=== PATIENT | male | born 1930 | race Caucasian/White ===

== ENCOUNTER 2016-09-19 13:13 | Emergency (ER) | payer MEDICARE, BC ==
[2016-09-19] MEDS ORDERED: METOCLOPRAMIDE HCL 10 MG/2 ML VIAL IVP ONE (13:47)
[2016-09-19] MEDS ORDERED: DIPHENHYDRAMINE HCL IV 50 MG/ML VIAL IVP ONE (13:47)
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
[2016-09-19] MEDS ORDERED: 0.9 % SODIUM CHLORIDE 1000ML 500 ML IV SCH (14:00)
== END 2016-09-19 15:19 | disposition home or self-care (01) ==
LOC: ER 13:13
DX: R51 Headache (principal); R11.0 Nausea; H53.8 Other visual disturbances
CPT/HCPCS: 70450; 96374; 96375; 99284; J1200; J2765; J7030

== ENCOUNTER 2018-01-09 16:27 | Emergency (ER) | payer MEDICARE, BC ==
[2018-01-09] MEDS ORDERED: ONDANSETRON HCL IV 4 MG/2 ML VIAL IV ONE (16:52)
[2018-01-09] MEDS ORDERED: 0.9 % SODIUM CHLORIDE 1,000 ML BAG IV ONE (16:52)
[2018-01-09 17:21] LABS: BASO % 0.2 % (0-6); EOS % 0.1 % (0-6); GRAN % 76.4 % (47-80); HEMATOCRIT 44.4 % (42.0-52.0); HEMOGLOBIN 14.7 gm/dl (14.0-18.0); LYMPH % 18.5 % (16-45); MEAN CELL VOLUME 96.7 fl (81-97); MEAN CORPUSCULAR HGB CONC 33.1 g/dl (32-36); MEAN PLATELET VOLUME 10.5 fl (7.4-10.4); MONO % 4.8 % (0-9); PLATELET COUNT 238 K/uL (130-400); RED BLOOD COUNT 4.59 M/uL (4.40-5.70); RED CELL DISTRIBUTION WIDTH 12.9 % (11.5-14.5); WHITE BLOOD COUNT W/O DIFF 8.4 K/uL (4.2-12.2)
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
[2018-01-09 17:34] LABS: BLOOD UREA NITROGEN 19 mg/dL (8-23); EST GLOMERULAR FILTRATION RATE > 60 mL/min
[2018-01-09 17:35] LABS: TOTAL PROTEIN 7.2 g/dL (6.6-8.7)
[2018-01-09 17:37] LABS: GLUCOSE,RANDOM 192 mg/dL (74-109)
[2018-01-09 17:39] LABS: ALBUMIN 4.5 g/dL (4.0-5.0); ALT/SGPT 6 U/L (<41); AST/SGOT 8 U/L (10.0-50.0)
[2018-01-09 17:40] LABS: ALB/GLOB RATIO 1.7 (1.1-1.8); ALKALINE PHOSPHATASE 92 U/L (40-129); LIPASE 34 U/L (13-60)
[2018-01-09 17:58] LABS: URINE APPEARANCE CLEAR; URINE BILIRUBIN NEGATIVE (NEGATIVE); URINE BLOOD NEGATIVE (NEGATIVE); URINE COLOR YELLOW; URINE KETONE 15 mg/dL (NEGATIVE); URINE LEUKOCYTE ESTERASE NEGATIVE (NEGATIVE); URINE NITRITE NEGATIVE (NEGATIVE); URINE PROTEIN TRACE (NEGATIVE); URINE UROBILINOGEN 0.2 E.U./dL (0.20 - 1.00)
[2018-01-09] MEDS ORDERED: ONDANSETRON 4 MG ODT TABLET SL ONE (18:01)
== END 2018-01-09 18:47 | disposition home or self-care (01) ==
LOC: ER 16:27
DX: R11.2 Nausea with vomiting, unspecified (principal); R63.4 Abnormal weight loss; I10 Essential (primary) hypertension
CPT/HCPCS: 99284 ×2; 96374; 96361; 83690; 85025; 80053; 81003; J2405; J7030

== ENCOUNTER 2018-09-23 08:18 | Inpatient (IN) | payer MEDICARE, BC ==
[2018-09-23 09:07] LABS: ABSOLUTE NEUTROPHIL COUNT 15.23; BASO % 0.1 % (0-6); EOS % 0.5 % (0-6); HEMOGLOBIN 12.7 gm/dl (14.0-18.0); LYMPH % 4.9 % (16-45); MEAN CELL VOLUME 94.8 fl (81-97); MEAN CORPUSCULAR HGB CONC 31.8 g/dl (32-36); MEAN PLATELET VOLUME 9.7 fl (7.4-10.4); MONO % 5.2 % (0-9); PLATELET COUNT 619 K/uL (130-400); RED BLOOD COUNT 4.22 M/uL (4.40-5.70); RED CELL DISTRIBUTION WIDTH 13.1 % (11.5-14.5); WHITE BLOOD COUNT W/O DIFF 17.1 K/uL (4.2-12.2)
[2018-09-23 09:15] LABS: BLOOD UREA NITROGEN 16 mg/dL (8-23)
[2018-09-23 09:16] LABS: CREATININE 0.8 mg/dL (0.7-1.2); EST GLOMERULAR FILTRATION RATE > 60 mL/min; TOTAL PROTEIN 7.2 g/dL (6.6-8.7)
[2018-09-23 09:18] LABS: GLUCOSE,RANDOM 256 mg/dL (74-109)
[2018-09-23 09:21] LABS: ALB/GLOB RATIO 0.8 (1.1-1.8); ALBUMIN 3.2 g/dL (4.0-5.0); ALKALINE PHOSPHATASE 117 U/L (40-129); ALT/SGPT 21 U/L (<41); AST/SGOT 12 U/L (10.0-50.0)
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
[2018-09-23] MEDS ORDERED: CEFTRIAXONE 1GM/50ML BAG 1 GM/50 ML BAG IVPB ONE (09:43)
[2018-09-23] MEDS ORDERED: AZITHROMYCIN 500 MG in 0.9 % SODIUM CHLORIDE 250ML 250 ML IVPB ONE (09:43)
[2018-09-23 10:04] LABS: C-REACTIVE PROTEIN 23.63 mg/dL (<0.5)
[2018-09-23] MEDS ORDERED: ACETAMINOPHEN 325 MG TAB PO PRN (13:13)
[2018-09-23] MEDS ORDERED: NAPROXEN 250 MG TABLET PO PRN (15:45)
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
[2018-09-23] MEDS ORDERED: 0.9 % SODIUM CHLORIDE 1000ML 1,000 ML IV SCH (18:00)
[2018-09-23] MEDS: CEFTRIAXONE 1GM/50ML BAG 1 GM/50 ML BAG IVPB SCH (21:56)
[2018-09-24 06:51] LABS: ABSOLUTE NEUTROPHIL COUNT 17.48; HEMATOCRIT 36.1 % (42.0-52.0); HEMOGLOBIN 11.4 gm/dl (14.0-18.0); MEAN CORPUSCULAR HGB CONC 31.6 g/dl (32-36); MEAN PLATELET VOLUME 9.5 fl (7.4-10.4); PLATELET COUNT 568 K/uL (130-400); RED CELL DISTRIBUTION WIDTH 13.1 % (11.5-14.5); WHITE BLOOD COUNT W/O DIFF 19.1 K/uL (4.2-12.2)
[2018-09-24 07:12] LABS: PLATELET ESTIMATE INCREASED (NORMAL)
[2018-09-24 07:24] LABS: BLOOD UREA NITROGEN 16 mg/dL (8-23); CREATININE 0.8 mg/dL (0.7-1.2); EST GLOMERULAR FILTRATION RATE > 60 mL/min; GLUCOSE,RANDOM 209 mg/dL (74-109)
--- NOTE | 2018-09-24 07:40 | RADIOLOGY REPORT ---
EXAM: CHEST, TWO VIEWS HISTORY: CHEST PAIN, WEAKNESS. TECHNIQUE: Two views of the chest were obtained. Comparison: Abdomen radiograph 08/11/18. FINDINGS: The cardiac silhouette is within normal size limits. There is a new dense consolidation in the right middle lobe. There is also a small right pleural effusion which is new from prior. No focal left lung findings. No pneumothorax. The lungs are hyperinflated. Diffuse thoracic spondylosis. IMPRESSION: 1. NEW RIGHT MIDDLE LOBE CONSOLIDATION SUSPICIOUS FOR PNEUMONIA. 2. NEW SMALL RIGHT PLEURAL EFFUSION. 3. PULMONARY HYPERINFLATION SUGGESTING COPD. JOB NUMBER: [id number] [facility]
[2018-09-24] MEDS: CEFTRIAXONE 1GM/50ML BAG 1 GM/50 ML BAG IVPB SCH ×2 (09:41→09:53)
[2018-09-24] MEDS ORDERED: ENOXAPARIN 40 MG/0.4 ML SYR SQ SCH (10:00)
[2018-09-24] MEDS ORDERED: CEFEPIME HCL 2 GM in 0.9 % SODIUM CHLORIDE 100ML 100 ML IVPB ONE (10:15)
[2018-09-24] MEDS ORDERED: LEVOFLOXACIN/D5W 750 MG/150 ML BAG IVPB ONE (10:45)
[2018-09-24] MEDS ORDERED: AZITHROMYCIN 500 MG in 0.9 % SODIUM CHLORIDE 250ML 250 ML IVPB SCH (11:00)
--- NOTE | 2018-09-24 11:17 | Discharge Summary ---
Providers Discharge Summary Date: 09/24/18 Date of admission: 09/23/18 12:33 Expected Date of Discharge: 09/24/18 Attending physician: EUGENIO WIGGINS Primary care physician: EUGENIO WIGGINS Physical Exam - Vital Signs Vital Signs: Vital Signs - Last 24 Hrs Temp Pulse Resp BP BP BP Pulse Ox 09/24/18 09:00 20 09/24/18 08:00 97.8 F 79 16 124/62 97 09/23/18 21:18 99 F 113/54 09/23/18 20:00 97.9 F 77 22 114/86 96 09/23/18 16:00 99.0 F 81 16 113/54 95 09/23/18 15:05 16 09/23/18 13:00 98.7 F 81 18 124/60 97 09/23/18 12:48 97.7 F 80 16 139/66 97 - General General Appearance: Alert, Oriented x3, Cooperative, No acute distress Limitations: No limitations - Head Head exam: Atraumatic, Normocephalic, Normal inspection - Eye Eye exam: Normal appearance, PERRL - ENT ENT exam: Mucous membranes moist Throat exam: Normal inspection. negative: Tonsillar erythema, Tonsillar exudate - Neck Neck exam: Normal inspection, Full ROM. negative: Tenderness - Respiratory Respiratory exam: Normal lung sounds bilaterally. negative: Respiratory distress - Cardiovascular Cardiovascular Exam: Regular rate, Normal rhythm, Normal heart sounds Peripheral Pulses: 2+: Radial (R), Radial (L), Dorsalis Pedis (R), Dorsalis Pedis (L) - GI/Abdominal GI/Abdominal exam: Soft, Normal bowel sounds. negative: Tenderness - Rectal Rectal exam: Deferred - exam: Deferred - Extremities Extremities exam: Normal inspection, Normal capillary refill. negative: Calf tenderness, Pedal edema, Tenderness - Neurological Neurological exam: Alert, Oriented X3. negative: Altered, Motor sensory deficit - Psychiatric Psychiatric exam: Normal affect, Normal mood. negative: Anxious - Skin Skin exam: Normal color. negative: Rash Hospitalization - Hospitalization Admission Diagnosis: 1. Acute Pneumonia - Problem List/Discharge Diagnosis (1) CAP (community acquired pneumonia) Current Visit: Yes Status: Acute Base Code: J18.9 - PNEUMONIA, UNSPECIFIED ORGANISM Comment: 09/24/18: -CXR: RML PNA with right-sided pleural effusion -WBC 19, CRP 23.6, procalcitonin 0.4 -Rocephin 1gm IVPB q12h and Zithromax 500mg IVPB q24h dc due to increase in procalcitonin -Patient reports signficant improvement in symptoms, return of appetite, afebrile, no shortness of breath and improvement in cough. Requesting to dc home. -Will transition to Levaquin 750mg PO daily, received 1 dose of Cefepime IVPB -Patient to have CBC and procalcitonin rechecked tomorrow and adjust antibiotic therapy as needed (2) DVT prophylaxis Current Visit: Yes Status: Acute Base Code: Z29.9 - ENCOUNTER FOR PROPHYLACTIC MEASURES, UNSPECIFIED Comment: 09/24/18: -High risk due to age, hospitalization, and illness -Lovenox 40mg SQ daily -Encourage ambulation within the room (3) DNR (do not resuscitate) Current Visit: Yes Status: Acute Base Code: Z66 - DO NOT RESUSCITATE Comment: 09/24/18: -DNR this admission - Hospitalization Course Disposition: Home, Self-Care Hospital Course: 88 year old male patient presented to ED for weakness, cough, fevers, and shortness of breath with exertion since Thursday. Patient reports decreased appetitie, but denies nausea or vomiting. Patient reports right-sided chest pain since symptoms started. Reports productive cough of thick, purulent sputum. Patient denies any current medications or significant medical history. PCP: Dr. Wiggins ED Course: Temp 97.5, HR 103, RR 20, BP 115/90, Pulse ox 98% WBC 17, CRP 24.6, procal 0.206 Trop negative EKG: no acute changes, NSR CXR: RML PNA with small right pleural effusion Rocephin and Zithromax started 09/23/18: Patient A&O x 4, resting comfortably in bed with daughter at bedside. No respiratory distress. VS stable, patient on room air, tolerating PO diet. 09/24/09: Patient A&O x 4, resting comfortably in bed. Patient reports improvement in all symptoms, improved appetite, decreased coughing. Denies shortness of breath, VS stable, no need for supplemental oxygen. WBC slightly increased and procalcitonin increased from 0.2 to 0.4. Patient requesting to go home. at bedside, agreeable to get labs rechecked in the morning and go to ER if symptoms worsen. Will dc rocephin and zithromas and treat with 1 dose of Cefepime and Levaquin 750mg x 7 days. Procedures: Imaging and X-Rays 09/23/18 08:55 CHEST 2 VIEWS [RAD] Stat Cardiology Procedures 09/23/18 08:38 EKG NOW 09/23/18 08:54 Ticket [employer] NOW Abnormal Labs: Abnormal Lab Results 09/23/18 09/23/18 09/23/18 Range/Units 08:40 08:40 08:40 WBC 17.1 H (4.2-12.2) K/uL RBC 4.22 L (4.40-5.70) M/uL Hgb 12.7 L (14.0-18.0) gm/dl Hct 40.0 L (42.0-52.0) % MCHC 31.8 L (32-36) g/dl Plt Count 619 H (130-400) K/uL Neutrophils % 91.0 H (47-80) % Lymphocytes % 4.9 L (16-45) % Lymphocytes 6.0 L (16-45) % Sodium 133 L (136-145) mmol/L Potassium 4.8 H (3.4-4.5) mmol/L Chloride 93 L (98-107) mmol/L Random Glucose 256 H (74-109) mg/dL C-Reactive Protein 23.63 H (<0.5) mg/dL Albumin 3.2 L (4.0-5.0) g/dL Albumin/Globulin Ratio 0.8 L (1.1-1.8) 09/24/18 09/24/18 Range/Units 06:36 06:36 WBC 19.1 H (4.2-12.2) K/uL RBC 3.80 L (4.40-5.70) M/uL Hgb 11.4 L (14.0-18.0) gm/dl Hct 36.1 L (42.0-52.0) % MCHC 31.6 L (32-36) g/dl Plt Count 568 H (130-400) K/uL Neutrophils % 88.0 H (47-80) % Lymphocytes % (16-45) % Lymphocytes 8.0 L (16-45) % Sodium 133 L (136-145) mmol/L Potassium (3.4-4.5) mmol/L Chloride 96 L (98-107) mmol/L Random Glucose 209 H (74-109) mg/dL C-Reactive Protein (<0.5) mg/dL Albumin (4.0-5.0) g/dL Albumin/Globulin Ratio (1.1-1.8) Condition at Discharge: (2) Stable Discharge Medications - Discharge Medications Prescriptions: Levofloxacin [Levaquin] 750 mg PO DAILY #6 tab Home Medications: Ambulatory Orders Levofloxacin [Levaquin] 750 mg PO DAILY #6 tab 09/24/18 [Last Taken Unknown] Discharge Plan - Discharge Instructions Activity at Discharge: Increase Activity as Tolerated Diet at Discharge: Advance to Usual Diet Instructions: Community Acquired Pneumonia (DC) Additional Instructions: -Start taking the Levaquin tomorrow (09/25/18) -Get your labs done at the hospital 09/25/18, you will receive a call later in the day with results -Go to ER if symptoms begin to worsen at any time -Follow-up with Dr. Wiggins in 1-2 weeks Diet and activity as tolerated Quality Measures - Quality Measures Quality Measures: Advance Directives, Documentation of Current Medications in Medical Record, Elder Maltreatment Screen and Follow-Up Plan, Screening for High Blood Pressure and F/U Documented - Current Medications Quality Measure: Measure #130: Documentation of Current Medications Documentation of Current Medications: <Current Medications Documented/Reviewed> [I4254] - Blood Pressure Screening Quality Measure: Screening for High Blood Pressure and Follow-Up Documented Does Patient Have Any of the Following: No Blood Pressure Classification: Normal BP Reading Systolic Measurement: 113 Diastolic Measurement: 54 Screening for High Blood Pressure: < Normal BP, F/U Not Required > [T2593] - Advance Directives Quality Measure: Measure #47: Care Plan Advance Directives Established: Yes Advance Directives Information Provided To Patient: No Advance Directives on File: No Living Will: No Power of Vp Security: No Advance Care Planning: <Care Plan/Decision Maker Documented; Discussed & Documented> [4887F] - Elder Abuse Suspicion Index Screening: Elder Abuse Suspicion Index Screening Rely on people for bathing, dressing, shopping, banking, etc: No Prevented from getting food, clothes, medication, etc: No Made to feel shamed or threatened by someone: No Forced to sign papers or use money against will: No Feel afraid, touched in ways not wanted or hurt physically: No Poor eye contact, withdrawn, malnourished, cuts or bruises: No Screening Result: Negative result EASI Reference Information: Crystal SANCHEZ, Sherry Russo, Basilio Carroll, Zohra Hassan.Development and validation of a tool to assist physicians identification of elder abuse: The Elder Abuse Suspicion Index (EASI ). Journal of Elder Abuse and Neglect, 2008; 20 (3): 276-300. - Elder Maltreatment Screen Quality Measures: Elder Maltreatment Screen and Follow-Up Plan Elder Maltreatment Screen: <Negative, No Follow-Up Plan Required> [G4476]
== END 2018-09-24 11:20 | disposition home or self-care (01) | DRG 195 ==
LOC: ER 08:18 → MEDSURG 12:33
PROVIDERS: ADMIT Internal Medicine; ATTEND Internal Medicine
DX: J18.9 Pneumonia, unspecified organism (principal); I10 Essential (primary) hypertension; E78.00 Pure hypercholesterolemia, unspecified; D75.1 Secondary polycythemia; R51 Headache; M54.9 Dorsalgia, unspecified; Z66 Do not resuscitate
CPT/HCPCS: 86140; 82553; 80053; 84145; 84484; 85027; 71046; 93005; 93010; J0696; 80048; 96365; 96366; 99223; 99239; 99285; J0456; J1650; J1956; J7050

== ENCOUNTER 2018-10-08 15:16 | Emergency (ER) | payer MEDICARE, BC ==
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
== END 2018-10-08 17:02 | disposition home or self-care (01) ==
LOC: ER 15:16
DX: K59.00 Constipation, unspecified (principal); R10.9 Unspecified abdominal pain; I10 Essential (primary) hypertension
CPT/HCPCS: 99282; 99283

== ENCOUNTER 2018-10-22 09:10 | Inpatient (IN) | payer MEDICARE, BC ==
[2018-10-22 09:57] LABS: ABSOLUTE NEUTROPHIL COUNT 5.73; BASO % 0.4 % (0-6); EOS % 2.7 % (0-6); GRAN % 70.1 % (47-80); HEMATOCRIT 39.5 % (42.0-52.0); HEMOGLOBIN 12.4 gm/dl (14.0-18.0); LYMPH % 20.6 % (16-45); MEAN CORPUSCULAR HEMOGLOBIN 29.8 pg (27-33); MEAN CORPUSCULAR HGB CONC 31.4 g/dl (32-36); MEAN PLATELET VOLUME 9.8 fl (7.4-10.4); MONO % 6.2 % (0-9); PLATELET COUNT 316 K/uL (130-400); RED BLOOD COUNT 4.16 M/uL (4.40-5.70); RED CELL DISTRIBUTION WIDTH 15.7 % (11.5-14.5); WHITE BLOOD COUNT W/O DIFF 8.2 K/uL (4.2-12.2)
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
[2018-10-22 10:06] LABS: BLOOD UREA NITROGEN 23 mg/dL (8-23); EST GLOMERULAR FILTRATION RATE > 60 mL/min
[2018-10-22 10:09] LABS: GLUCOSE,RANDOM 212 mg/dL (74-109)
[2018-10-22] MEDS ORDERED: ACETAMINOPHEN 325 MG TAB PO ONE (10:48)
[2018-10-22] MEDS ORDERED: CEFTRIAXONE 1GM/50ML BAG 1 GM/50 ML BAG IVPB ONE (10:54)
[2018-10-22] MEDS ORDERED: AZITHROMYCIN 500 MG in 0.9 % SODIUM CHLORIDE 250ML 250 ML IVPB ONE (10:54)
[2018-10-22 11:00] LABS: URINE APPEARANCE CLEAR; URINE BILIRUBIN NEGATIVE (NEGATIVE); URINE BLOOD NEGATIVE (NEGATIVE); URINE COLOR YELLOW; URINE GLUCOSE (UA) NEGATIVE (NEGATIVE); URINE KETONE NEGATIVE (NEGATIVE); URINE LEUKOCYTE ESTERASE NEGATIVE (NEGATIVE); URINE NITRITE NEGATIVE (NEGATIVE); URINE PROTEIN NEGATIVE (NEGATIVE); URINE UROBILINOGEN 0.2 E.U./dL (0.20 - 1.00)
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
--- NOTE | 2018-10-22 14:09 | CT SCAN REPORT ---
EXAM: NONCONTRAST CT OF THE BRAIN HISTORY: WEAKNESS. TECHNIQUE: Noncontrast CT of the brain was obtained. Comparison: CT of the brain 09/19/16. FINDINGS: No midline shift, mass effect or abnormal intra or extraaxial fluid collection. No cerebral edema, focal mass or intracranial hemorrhage detected. Chronic small vessel ischemic white matter changes. Age appropriate generalized cerebral volume loss. No displaced calvarial fracture detected. The visualized paranasal sinuses and mastoid air cells are clear. IMPRESSION: 1. NO ACUTE INTRACRANIAL FINDINGS. 2. CHRONIC SMALL VESSEL ISCHEMIC CHANGE. 3. AGE APPROPRIATE CEREBRAL VOLUME LOSS. JOB NUMBER: [id number] MTDD
[2018-10-22] MEDS ORDERED: AZITHROMYCIN 500 MG in 0.9 % SODIUM CHLORIDE 250ML 250 ML IVPB SCH (14:10)
--- NOTE | 2018-10-22 14:12 | RADIOLOGY REPORT ---
EXAM: PELVIS, THREE VIEWS HISTORY: FALL, BILATERAL HIP PAIN. TECHNIQUE: AP and bilateral oblique views of the pelvis were obtained. Comparison: None. FINDINGS: Superimposing bowel contents limit visualization of the posterior pelvis. No acute fracture identified. No evidence of hip joint dislocation. Moderate bilateral femoral acetabular arthrosis. Degenerative changes in the lower lumbar spine. IMPRESSION: 1. NO ACUTE OSSEOUS FINDINGS. 2. DEGENERATIVE CHANGES OF THE HIPS. JOB NUMBER: [id number] MTDD
--- NOTE | 2018-10-22 14:15 | RADIOLOGY REPORT ---
EXAM: CHEST, TWO VIEWS HISTORY: FALL, HIP PAIN. TECHNIQUE: Two views of the chest were obtained. Comparison: Chest radiograph 10/06/18. FINDINGS: The cardiac silhouette is stable in size. Thoracic aortic calcification noted. Increased patchy consolidation in the right middle lobe. Small right pleural effusion, similar to slightly increased. No new left lung findings. Cervical fusion hardware is noted. Degenerative change in both shoulders. IMPRESSION: 1. RIGHT MIDDLE LOBE CONSOLIDATION APPEARS INCREASED FROM 10/06/18. 2. SMALL RIGHT PLEURAL EFFUSION, SIMILAR TO MINIMALLY INCREASED. JOB NUMBER: [id number] [facility]
[2018-10-22] MEDS: SENNOSIDES/DOCUSATE SODIUM UD CAPSULE PO SCH (15:03)
[2018-10-22] MEDS: ACETAMINOPHEN 325 MG TAB PO PRN (18:27)
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
[2018-10-22] MEDS: CEFTRIAXONE 1GM/50ML BAG 1 GM/50 ML BAG IVPB SCH (21:30)
[2018-10-23 08:20] LABS: ABSOLUTE NEUTROPHIL COUNT 4.77; BASO % 0.4 % (0-6); EOS % 2.9 % (0-6); GRAN % 63.5 % (47-80); HEMATOCRIT 40.2 % (42.0-52.0); HEMOGLOBIN 12.6 gm/dl (14.0-18.0); LYMPH % 27.1 % (16-45); MEAN CELL VOLUME 95.9 fl (81-97); MEAN CORPUSCULAR HGB CONC 31.3 g/dl (32-36); MEAN PLATELET VOLUME 9.6 fl (7.4-10.4); MONO % 6.1 % (0-9); PLATELET COUNT 300 K/uL (130-400); RED BLOOD COUNT 4.19 M/uL (4.40-5.70); WHITE BLOOD COUNT W/O DIFF 7.5 K/uL (4.2-12.2)
[2018-10-23 08:39] LABS: ALBUMIN 3.5 g/dL (4.0-5.0); ALKALINE PHOSPHATASE 104 U/L (40-129); ALT/SGPT < 5 U/L (<41); AST/SGOT 8 U/L (10.0-50.0); BLOOD UREA NITROGEN 18 mg/dL (8-23); CREATININE 0.9 mg/dL (0.7-1.2); EST GLOMERULAR FILTRATION RATE > 60 mL/min; GLUCOSE,RANDOM 137 mg/dL (74-109); TOTAL PROTEIN 6.9 g/dL (6.6-8.7)
[2018-10-23] MEDS: SENNOSIDES/DOCUSATE SODIUM UD CAPSULE PO SCH (09:49)
[2018-10-23] MEDS: AZITHROMYCIN 500 MG TABLET PO SCH (09:49)
[2018-10-23] MEDS: CEFTRIAXONE 1GM/50ML BAG 1 GM/50 ML BAG IVPB SCH ×2 (09:50→21:58)
[2018-10-24] MEDS: ACETAMINOPHEN 325 MG TAB PO PRN (01:14)
[2018-10-24 07:00] LABS: ABSOLUTE NEUTROPHIL COUNT 4.27; BASO % 0.5 % (0-6); EOS % 4.2 % (0-6); GRAN % 65.7 % (47-80); HEMATOCRIT 36.4 % (42.0-52.0); HEMOGLOBIN 11.1 gm/dl (14.0-18.0); LYMPH % 23.7 % (16-45); MEAN CELL VOLUME 95.8 fl (81-97); MEAN CORPUSCULAR HEMOGLOBIN 29.2 pg (27-33); MEAN CORPUSCULAR HGB CONC 30.5 g/dl (32-36); MEAN PLATELET VOLUME 9.5 fl (7.4-10.4); MONO % 5.9 % (0-9); PLATELET COUNT 289 K/uL (130-400); RED CELL DISTRIBUTION WIDTH 15.9 % (11.5-14.5); WHITE BLOOD COUNT W/O DIFF 6.5 K/uL (4.2-12.2)
[2018-10-24 07:13] LABS: ALBUMIN 3.1 g/dL (4.0-5.0); ALKALINE PHOSPHATASE 93 U/L (40-129); ALT/SGPT < 5 U/L (<41); AST/SGOT 7 U/L (10.0-50.0); BLOOD UREA NITROGEN 20 mg/dL (8-23); CREATININE 0.9 mg/dL (0.7-1.2); EST GLOMERULAR FILTRATION RATE > 60 mL/min; GLUCOSE,RANDOM 135 mg/dL (74-109); TOTAL PROTEIN 6.1 g/dL (6.6-8.7)
[2018-10-24] MEDS: CEFTRIAXONE 1GM/50ML BAG 1 GM/50 ML BAG IVPB SCH (09:26)
[2018-10-24] MEDS: SENNOSIDES/DOCUSATE SODIUM UD CAPSULE PO SCH (09:27)
[2018-10-24] MEDS: AZITHROMYCIN 500 MG TABLET PO SCH (09:27)
--- NOTE | 2018-10-24 10:35 | Physician Progress Note ---
Subjective - Date Date of Physician Progress Note: 10/24/18 - Subjective Subjective Comment: 10/24/18: -Pt. reports improvement in weakness. Labs stable, VSS. Planned PT/OT eval and case management consult tomorrow morning to eval home care needs. Objective - Vital Signs Vital Signs: Vital Signs - Last 24 Hrs Temp Pulse Resp BP Pulse Ox 10/24/18 07:00 97.5 F L 54 L 17 108/53 100 10/24/18 05:00 98.0 F 50 L 14 119/56 99 10/24/18 01:00 97.9 F 57 L 16 120/60 98 10/23/18 21:00 97.9 F 72 14 105/49 97 10/23/18 17:00 98.1 F 70 16 111/54 98 10/23/18 13:00 98.0 F 72 17 110/65 97 - General General Appearance: Alert, Oriented x3, Cooperative, No acute distress Limitations: Physical limitation (weakness) - Head Head exam: Atraumatic, Normal inspection Head exam detail: negative: Abrasion, Contusion, Hematoma, [place] eyes, Tenderness of temporal artery - Eye Eye exam: Normal appearance, PERRL, EOMI (right upper lid slight lag, states it looks "noraml" for him. Able to fully open lids bilateral with effort. ) - ENT ENT exam: Mucous membranes moist, TM's normal bilaterally Ear exam: Normal external inspection Nasal Exam: Normal inspection. negative: Discharge, Dried blood Mouth exam: Normal external inspection. negative: Tongue elevation Teeth exam: Other (Missing most teeth, no denture in place. ) - Neck Neck exam: Normal inspection, Full ROM. negative: Lymphadenopathy, Meningismus, Tenderness - Respiratory Respiratory exam: Normal lung sounds bilaterally. negative: Chest wall tenderness, Respiratory distress, Rhonchi, Wheezes - Cardiovascular Cardiovascular Exam: Regular rate, Normal rhythm, Normal heart sounds. negative: Tachycardia Peripheral Pulses: 2+: Radial (R), Radial (L), Dorsalis Pedis (R), Dorsalis Pedis (L) - GI/Abdominal GI/Abdominal exam: Soft, Normal bowel sounds. negative: Distended, Rebound, Te nderness - Extremities Extremities exam: Full ROM, Pedal edema. negative: Calf tenderness, Joint swelling, Tenderness (bilateral ankle edema soft to sock line) - Back Back exam: Reports: Normal inspection - Neurological Neurological exam: Alert, Oriented X3. negative: Motor sensory deficit (moves ext x 4, strength right upper ext 4 of 5, left 5 of 5, equil strength lowetr ext. ) - Psychiatric Psychiatric exam: Normal affect, Normal mood - Skin Skin exam: Dry, Intact (no sacral breakdown, healing right hip pressure area. Dry without breakdown or sign of infection. ), Pallor Assessment and Plan - Assessment and Plan (1) CAP (community acquired pneumonia) Current Visit: Yes Status: Acute Base Code: J18.9 - PNEUMONIA, UNSPECIFIED ORGANISM Comment: 10/24/18: -CXR: RML PNA with right-sided pleural effusion -Changed abx to PO (2) Weakness Current Visit: Yes Status: Acute Base Code: R53.1 - WEAKNESS Comment: 02/03: -likely secondary to pneumonia and CVA -PT/OT eval completed yesterday and case management spoke with pt and his . PT recommended 1-2 times/day M-F for balance and LE strengthening exercises, gait and transfer training. OT recommends 1-4x/week M-F while at [facility] and further rehab at [facility] facility or home care. (3) Acute CVA (cerebrovascular accident) Current Visit: Yes Status: Acute Base Code: I63.9 - CEREBRAL INFARCTION, UNSPECIFIED Comment: 10/24/18: -Poss sm stroke, head CT neg for acute change, showed chronic sm vessel inschemia -PT/OT eval completed 10/22 -Neuro checks q4h (4) DVT prophylaxis Current Visit: No Status: Acute Base Code: Z29.9 - ENCOUNTER FOR P ROPHYLACTIC MEASURES, UNSPECIFIED Comment: 10/24/18: -High risk due to age, hospitalization, and illness -Prophylaxis held due to recent CVA -Nursing to encourage ambulation (5) DNR (do not resuscitate) Current Visit: Yes Status: Acute Base Code: Z66 - DO NOT RESUSCITATE Comment: 10/24/18: -DNR this admission Results - Labs Result Diagrams: 10/24/18 06:35 10/24/18 06:35 Labs Last 24 Hours: Laboratory Results - last 24 hr 10/24/18 10/24/18 06:35 06:35 WBC 6.5 RBC 3.80 L Hgb 11.1 L Hct 36.4 L MCV 95.8 MCH 29.2 MCHC 30.5 L RDW 15.9 H Plt Count 289 MPV 9.5 Gran % 65.7 Lymphocytes % 23.7 Monocytes % 5.9 Eosinophils % 4.2 Basophils % 0.5 Absolute Neutrophils 4.27 Sodium 140 Potassium 4.5 Chloride 102 Carbon Dioxide 28.0 Anion Gap 10.0 BUN 20 Creatinine 0.9 Estimated GFR > 60 Random Glucose 135 H Calcium 8.9 Total Bilirubin 0.30 AST 7 L ALT < 5 Alkaline Phosphatase 93 Total Protein 6.1 L Albumin 3.1 L Globulin 3.0 Albumin/Globulin Ratio 1.0 L DVT/PE Assessment - Risk for VTE Risk for VTE: No Risk Level: Moderate Risk Assessment Date: 10/22/18 Risk Assessment Time: 13:13 VTE Orders Placed or Will Be Placed: No VTE Reason for No Prophylaxis: Not Indicated (high fall risk) - Active Medicaitons Current Medications: Current Medications Acetaminophen (Tylenol 325mg) 650 mg PO Q4H PRN PRN Reason: PAIN - MILD(1-4)/FEVER Last Admin: 10/24/18 01:14 Dose: 650 mg Documented by: Azithromycin (Zithromax) 500 mg PO DAILY [facility] Last Admin: 10/24/18 09:27 Dose: 500 mg Documented by: CEFTRIAXONE 1GM/50ML BAG (Ceftriaxone 1 Gm-D5w Bag) 1 gm in 50 mls @ 100 mls/hr IVPB Q12HR [facility] Last Infusion: 10/24/18 10:03 Dose: Infused Documented by: Senna/Docusate Sodium (Senna Plus) 1 each PO DAILY [facility] Last Admin: 10/24/18 09:27 Dose: 1 each Documented by: UTE Plan - Labs Result Diagrams: 10/24/18 06:35 10/24/18 06:35
[2018-10-24] MEDS: CEFDINIR 300 MG CAPSULE PO SCH (21:53)
[2018-10-25] MEDS: ACETAMINOPHEN 325 MG TAB PO PRN (01:03)
[2018-10-25] MEDS: CEFDINIR 300 MG CAPSULE PO SCH (09:48)
[2018-10-25] MEDS: AZITHROMYCIN 500 MG TABLET PO SCH (09:49)
[2018-10-25] MEDS: SENNOSIDES/DOCUSATE SODIUM UD CAPSULE PO SCH (09:49)
--- NOTE | 2018-10-25 10:52 | Occupational Therapy Tx Note ---
Occupational Therapy Tx Note - Treatment Note Tolerated: Good Total Time Spent With Patient: 15 Occupational Therapy Treatment Note: Detail (Went to see patient at 9:30am to further assess ADLs but patient stated he had no clothes and was coming at 10:15 am with clothes. Arrived at 10:15am to complete ADLs, spouse was present, patient was already dressed. says that she feels what she helped patient with today in getting dressed was "pretty close" to what she was doing [employer] to help patient. She assisted patient with pant thread over feet and sit to stand t/f to pull worker hips. Patient did c/o R hand weakness and was given Green [employer] and handout with demonstration and discussion in order to address gross grasp and pinch weakness and impaired coordination. Patient and spouse verbalized understanding of HEP and thankful for exercises to do to address hand weakness and improve FMC.) Occupational Therapy Problem List: Detail (1. decreased RUE ROM 2. Weakness RUE and right gross grasp 3. decreased safety with ADLs 4. decreased mobility) Occupational Therapy Goals: 1. Patient to be independent and safe for showering. 2. Patient to be independent and safe for LB drsg. 3. Patient to be able to a mbulate household distances using 2WW independently and safely. Prognosis: Good Occupational Therapy Plan: OT to see patient 1-4x a week M-F while here at [facility]. Recommend further rehab at sub acute rehab facility or home care.
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
== END 2018-10-25 12:30 | disposition home or self-care (01) | DRG 64 ==
LOC: ER 09:10 → MEDSURG 12:54
PROVIDERS: ADMIT Internal Medicine; ATTEND Internal Medicine
DX: I63.9 Cerebral infarction, unspecified (principal); J18.9 Pneumonia, unspecified organism; G81.91 Hemiplegia, unspecified affecting right dominant side; I10 Essential (primary) hypertension; E78.00 Pure hypercholesterolemia, unspecified; D75.1 Secondary polycythemia; R51 Headache; Z66 Do not resuscitate
CPT/HCPCS: 70450; 71046; 72190; 80048; 80053; 81003; 85025; 93005; 93010; 96365; 96366; 97110; 99223; 99233; 99239; 99285; J0456; J0696; J7050

== ENCOUNTER 2019-01-04 15:03 | Emergency (ER) | payer MEDICARE, BC ==
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
== END 2019-01-04 17:19 | disposition home or self-care (01) ==
LOC: ER 15:03
DX: S00.03XA Contusion of scalp, initial encounter (principal); S16.1XXA Strain of muscle, fascia and tendon at neck level, initial encounter; S60.221A Contusion of right hand, initial encounter; S09.90XA Unspecified injury of head, initial encounter; I10 Essential (primary) hypertension; W18.09XA Striking against other object with subsequent fall, initial encounter; Y92.531 Health care provider office as the place of occurrence of the external cause
CPT/HCPCS: 70450; 72125; 99284